=== PATIENT | female | born 1955 | race Native Hawaiian/Other Pacific Islander ===

== ENCOUNTER 2018-07-26 11:52 | Outpatient (CLI) | payer BC ==
[2018-07-26] MEDS ORDERED: GADODIAMIDE 2.5 MMOL/5 ML VIAL IJ ONE (11:53)
[2018-07-26] MEDS ORDERED: GADODIAMIDE 5 MMOL/10 ML VIAL IJ ONE (11:53)
== END 2018-07-26 23:59 | disposition home or self-care (01) ==
LOC: MRI 11:52
DX: I67.82 Cerebral ischemia (principal); H91.22 Sudden idiopathic hearing loss, left ear
CPT/HCPCS: 70542; 70553; A9579 ×2